=== PATIENT | female | born 2000 | race Caucasian/White ===

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

== ENCOUNTER 2022-02-23 00:51 | Emergency (ER) | payer OTHER ==
[~2022-02-23] VITALS: Ht 154.9 cm; Wt 72.6 kg
== END 2022-02-23 01:26 | disposition left against medical advice (07) ==
LOC: ED 00:51
DX: O46.91 Antepartum hemorrhage, unspecified, first trimester (principal); O26.891 Other specified pregnancy related conditions, first trimester; R10.2 Pelvic and perineal pain; Z79.899 Other long term (current) drug therapy; Z3A.08 8 weeks gestation of pregnancy